=== PATIENT | female | born 1960 | race Hispanic/Latino ===

== ENCOUNTER 2021-08-01 05:56 | Day surgery (SDC) | payer OTHER ==
[2021-08-01] VITALS (7 sets, daily range): BP systolic 90–123; BP diastolic 55–82
[~2021-08-01] VITALS: Ht 157.5 cm; Wt 78.9 kg
[2021-08-01] MEDS ORDERED: 0.9%NACL 1000ML 1,000 ML IV ONE (06:24)
[2021-08-01] MEDS ORDERED: VITAD50000 PO (07:04)
[2021-08-01] MEDS ORDERED: VITA1CAP PO (07:04)
[2021-08-01] MEDS ORDERED: HYDR25TA PO (07:04)
[2021-08-01] MEDS ORDERED: ASPI-1197 PO (07:04)
[2021-08-01] MEDS ORDERED: SIMV10TA97 PO (07:04)
[2021-08-01] MEDS ORDERED: METF-526 PO (07:04)
[2021-08-01] MEDS ORDERED: SEMA7TAB PO (07:04)
[2021-08-01] MEDS ORDERED: DULO30CA52 PO (07:04)
[2021-08-01] MEDS ORDERED: DULA0.75 SQ (07:04)
[2021-08-01] MEDS ORDERED: PLEC3TAB2 PO (07:04)
[2021-08-01] MEDS ORDERED: LEVO112C4 PO (07:04)
[2021-08-01] MEDS ORDERED: PROPOFOL 10 MG/ML 20ML VIAL IV ONE (08:30)
[2021-08-01] MEDS ORDERED: LIDOCAINE HCL 400MG/20ML VIAL ONE (08:30)
== END 2021-08-01 09:46 | disposition home or self-care (01) ==
LOC: DAH 05:56
PROVIDERS: ATTEND Internal Medicine Gastroenterology
DX: R10.12 Left upper quadrant pain (principal); K29.50 Unspecified chronic gastritis without bleeding; K29.40 Chronic atrophic gastritis without bleeding; K31.89 Other diseases of stomach and duodenum; I10 Essential (primary) hypertension; E78.5 Hyperlipidemia, unspecified; E11.9 Type 2 diabetes mellitus without complications; E03.9 Hypothyroidism, unspecified; Z79.899 Other long term (current) drug therapy; Z20.822 Contact with and (suspected) exposure to COVID-19; Z98.890 Other specified postprocedural states; Z90.49 Acquired absence of other specified parts of digestive tract
CPT/HCPCS: 43239; 82948 ×5; 87635; A4215 ×2; A4221; A4222; A4223; A4606; A4620; A4663; C9803; J2704; J3490; J7030

== ENCOUNTER → 2022-08-06 | Outpatient (CLI) | payer OTHER ==
[~2022-08-06] MED LIST: ASPI-1197 PO; DULA0.75 SQ; DULO30CA52 PO; HYDR25TA PO; LEVO112C4 PO; METF-526 PO; PLEC3TAB2 PO; SEMA7TAB2 PO; SIMV10TA97 PO; VITA1CAP PO; VITAD50000 PO
== END | disposition home or self-care (01) ==
LOC: EDSTATUS 08-01 08:35 → SHCH 08:23
PROVIDERS: ATTEND Internal Medicine Cardiovascular Disease
DX: I87.2 Venous insufficiency (chronic) (peripheral) (principal)
CPT/HCPCS: 93970

== ENCOUNTER 2022-11-16 05:37 | Day surgery (SDC) | payer OTHER ==
[2022-11-14 09:57] LABS: BASOPHILS % (AUTO) 0.8 % (0.0-5.0); EOSINOPHILS % (AUTO) 4.5 % (0.0-8.0); HEMATOCRIT 43.5 % (36-48); LYMPHOCYTES % (AUTO) 34.4 % (21.0-51.0); MEAN CORPUSCULAR HEMOGLOBIN 29.9 pg (27.0-33.0); MEAN CORPUSCULAR HGB CONC 33.6 g/dL (32.0-36.0); MEAN CORPUSCULAR VOLUME 89.1 fL (79-99); MONOCYTES % (AUTO) 6.7 % (3.0-13.0); NEUTROPHILS % (AUTO) 53.5 % (40.0-77.0); PLATELET COUNT (AUTO) 219 K/uL (130-400); RED BLOOD CELL COUNT(AUTO) 4.88 MIL/uL (4.00-5.50); RED CELL DISTRIBUTION WIDTH 13.3 % (11.0-15.5); WHITE BLOOD COUNT (AUTO) 7.4 K/uL (4.8-10.8)
[2022-11-14 10:04] LABS: CREATININE 0.7 mg/dL (0.5-1.5); POTASSIUM 3.8 mmol/L (3.5-5.1)
[2022-11-14 10:07] LABS: INR 0.93 (0.85-1.15); PROTHROMBIN TIME 9.8 SEC (9.6-11.6)
[2022-11-14 10:08] LABS: PARTIAL THROMBOPLASTIN TIME 28.9 SEC (26.3-35.5)
[2022-11-14 10:16] LABS: B-TYPE NATRIURETIC PEPTIDE 15 pg/mL (0-100)
[2022-11-14 10:35] VITALS: BP 136/82
[2022-11-14 10:48] LABS: APPEARANCE,URINE CLEAR (CLEAR); BILIRUBIN,URINE NEGATIVE (NEGATIVE); COLOR,URINE LIGHT-YELLOW (YELLOW); GLUCOSE, URINE (UA) NEGATIVE (NEGATIVE); KETONES,URINE NEGATIVE (NEGATIVE); LEUKOCYTE ESTERASE ,URINE NEGATIVE Leu/uL (NEGATIVE); NITRATE,URINE NEGATIVE (NEGATIVE); OCCULT BLOOD,URINE NEGATIVE (NEGATIVE); PH,URINE 7.5 (5.0-8.0); PROTEIN,URINE NEGATIVE (NEGATIVE); UROBILINOGEN,URINE 0.2 mg/dL (0.2-1.0)
[2022-11-16] VITALS (7 sets, daily range): BP systolic 116–129; BP diastolic 62–78
[~2022-11-16] VITALS: Ht 157.5 cm; Wt 86.6 kg
[~2022-11-16 05:37] MED LIST changes: -ASPI-1197 PO; -DULA0.75 SQ; -METF-526 PO; -PLEC3TAB2 PO; +SEMA1PEN3 SQ; -SEMA7TAB2 PO; -VITA1CAP PO
[2022-11-16] MEDS ORDERED: 0.9%NACL 1000ML 1,000 ML IV ONE (06:21)
[2022-11-16] MEDS ORDERED: NITROGLYCERIN 50MG VIAL ONE (07:11)
[2022-11-16] MEDS ORDERED: MIDAZOLAM HCL 1 MG/ML 2ML VIAL ONE (07:11)
[2022-11-16] MEDS ORDERED: IODIXANOL 320 MG/ML 100 ML VIAL ONE (07:11)
[2022-11-16] MEDS ORDERED: FENTANYL CITRATE PF 50 MCG/1 ML 2ML VIAL ONE (07:11)
[2022-11-16] MEDS ORDERED: HEPARIN 10,000 UNIT/10ML (1,000 UNIT/ML) VIAL ONE (07:11)
[2022-11-16] MEDS ORDERED: LIDOCAINE HCL 400MG/20ML VIAL ONE (07:12)
[2022-11-16] MEDS ORDERED: CLOPIDOGREL 300MG TAB ONE (08:20)
[2022-11-16] MEDS ORDERED: ASPIRIN 325MG EC TAB PO ONE (08:20)
[2022-11-16] MEDS ORDERED: DEXTROSE 50%-WATER 50 ML DISP.SYRIN IV PRN (08:30)
[2022-11-16] MEDS ORDERED: GLUCAGON 1MG KIT 1 MG ML IM PRN (08:30)
[2022-11-16] MEDS ORDERED: ACETAMINOPHEN WITH CODEINE 1 TAB TAB PO PRN ×2 (08:30)
[2022-11-16] MEDS ORDERED: INSULIN HUMULIN R 100 UNIT/ML 3ML SQ SCH (11:30)
== END 2022-11-16 10:23 | disposition home or self-care (01) ==
LOC: DAH 05:37
PROVIDERS: ATTEND Internal Medicine Cardiovascular Disease
DX: I87.1 Compression of vein (principal); I25.10 Atherosclerotic heart disease of native coronary artery without angina pectoris; E11.9 Type 2 diabetes mellitus without complications; F32.A Depression, unspecified; E03.9 Hypothyroidism, unspecified; Z79.899 Other long term (current) drug therapy; Z72.89 Other problems related to lifestyle; Z98.890 Other specified postprocedural states; Z79.84 Long term (current) use of oral hypoglycemic drugs; Z90.710 Acquired absence of both cervix and uterus
CPT/HCPCS: 80048; 83880; 85025; 85610; 85730; 81003; 36415; 93005; 37238; 37239; 36012; 75822; 37252; 37253 ×5; 82948 ×2; C1876 ×2; C1894 ×3; C1753; C1769; J3010; J3490 ×2; J7030; J1644 ×2; J2250; Q9967; A4215; A4222; A4221; A4663; A4216; A4606; A4223 ×3; 99156; 99157

== ENCOUNTER 2023-06-19 06:15 | Day surgery (SDC) | payer OTHER ==
[2023-06-19] VITALS (11 sets, daily range): BP systolic 98–111; BP diastolic 59–69; PULSE 53–64; RESP 13–16
[~2023-06-19] VITALS: Ht 157.5 cm; Wt 81.6 kg
[~2023-06-19 06:15] MED LIST changes: +AEC81 PO; +CHOL100040 PO; +CLOP75TA32 PO; -SEMA1PEN3 SQ; +TIRZ5PEN SQ; -VITAD50000 PO
[2023-06-19] MEDS ORDERED: 0.9%NACL 1000ML 1,000 ML IV ONE (06:20)
[2023-06-19] MEDS ORDERED: PROPOFOL 10 MG/ML 20ML VIAL IV ONE (08:14)
== END 2023-06-19 09:45 | disposition home or self-care (01) ==
LOC: ENDO 06:15 → DAH 06:15 → ENDO 09:45
PROVIDERS: ATTEND Internal Medicine
DX: Z12.11 Encounter for screening for malignant neoplasm of colon (principal); K63.5 Polyp of colon; K29.50 Unspecified chronic gastritis without bleeding; I10 Essential (primary) hypertension; E78.00 Pure hypercholesterolemia, unspecified; E11.9 Type 2 diabetes mellitus without complications; E03.9 Hypothyroidism, unspecified; Z79.01 Long term (current) use of anticoagulants; Z79.899 Other long term (current) drug therapy; Z98.890 Other specified postprocedural states; Z79.82 Long term (current) use of aspirin; Z79.84 Long term (current) use of oral hypoglycemic drugs; Z90.710 Acquired absence of both cervix and uterus
CPT/HCPCS: 43239; 45380; J7030 ×2; J2704; A4620; A4215 ×2; A4223; A7002; A4222; A4221; A4663; A4216; A4606; J3490

== ENCOUNTER → 2024-02-10 | Outpatient (CLI) | payer OTHER | END | disposition home or self-care (01) | LOC: SHCH 15:10 | PROVIDERS: ATTEND Internal Medicine Cardiovascular Disease | DX: I87.1 Compression of vein (principal); I87.2 Venous insufficiency (chronic) (peripheral); E03.9 Hypothyroidism, unspecified; E78.00 Pure hypercholesterolemia, unspecified; E78.5 Hyperlipidemia, unspecified; E11.9 Type 2 diabetes mellitus without complications; Z95.820 Peripheral vascular angioplasty status with implants and grafts; Z68.33 Body mass index [BMI] 33.0-33.9, adult; Z79.899 Other long term (current) drug therapy | CPT/HCPCS: 93971 ==

== ENCOUNTER 2025-06-05 09:12 | Emergency (ER) | payer OTHER ==
[~2025-06-05] VITALS: Ht 157.5 cm; Wt 83.9 kg
[~2025-06-05 09:12] MED LIST changes: -LEVO112C4 PO; +LEVO112C5 PO
--- NOTE | 2025-06-05 09:29 | ERN ---
General Chief Complaint: Earache Stated Complaint: LEFT EAR PAIN Time Seen by MD: 09:16 History of Present Illness Initial Comments 65-year-old female history of Kedar's granulomatosis, hypothyroid, hypertension, hyperlipidemia, diabetes mellitus here for evaluation of non specific left-sided ear pain, neck pain, left arm pain and chest pain. Patient states that she thinks it was her normal body aches however she mentioned it to her son who advised the patient come to the emergency room for evaluation. Allergies: Coded Allergies: No Known Drug Allergies (Unverified Allergy, Unknown, 07/31/21) Home Meds Reported Medications Cholecalciferol (Vitamin D3) (Vitamin D3) 25 Mcg (1000 Unit) Capsule, 25 MCG PO DAILY, CAP 06/17/23 Tirzepatide (Mounjaro) 5 Mg/0.5 Ml Pen.injctr, 5 MG SQ QWEEK 06/17/23 Clopidogrel Bisulfate (Clopidogrel) 75 Mg Tablet, 75 MG PO DAILY, TAB 06/17/23 Aspirin (ASPIRIN 81 MG ECTAB) 81 Mg Ectab, 81 MG PO DAILY, TAB.EC 06/17/23 Levothyroxine Sodium (Levothyroxine) 112 Mcg Capsule, 112 MCG PO DAILY, CAP 08/01/21 Duloxetine HCl (Duloxetine HCl) 30 Mg Capsule.dr, 30 MG PO HS, CAP 08/01/21 Simvastatin (Simvastatin) 10 Mg Tablet, 20 MG PO HS, TAB 08/01/21 Hydrochlorothiazide (Hydrochlorothiazide) 25 Mg Tablet, 25 MG PO DAILY, TAB 08/01/21 Past Medical History Past Medical History: Diabetes-Type II Medical History Other: ADAMES'S, HYPOTHYROID Past Surgical History: Hysterectomy, Cholecystectomy Cardiovascular: (+) chest pain Musculoskeletal: (+) Neck pain Physical Exam Physical Exam Dictation GENERAL APPEARANCE NAD, activity normal for age, well developed/ well nourished, no cyanosis, pallor, or diaphoresis. EYES lids/conjunctiva normal. EARS/NOSE/THROAT Mucous membranes moist, nares normal, lips/teeth normal uvula midline without oral pharyngeal erythema, exudate or swelling TMs normal bilaterally. No lymphangitis/lymphedema. HEAD/NECK normocephalic atraumatic, no facial trauma, neck is supple. RESPIRATORY respiratory effort normal, speaks in full sentences, no tripod position, no accessory muscle use. Lungs clear to auscultation without rhonchi, wheezes, rales CARDIAC Regular rate and rhythm, no edema. ABDOMINAL Soft, ND/NT. No evidence of fluid wave. No pulsatile masses on exam, rebound tenderness, Obando sign or pain over Mcburney's point. MUSCLES/EXTREMITIES No abnormal range of motion, no swelling. SKIN Warm, pink and dry. No rashes, dermatoses, petechiae or lesions. NEUROLOGICAL Speech is clear and appropriate. Normal level of consciousness. Gait and coordination are normal. 5/5 strength in all extremities. PSYCH Normal mood and affect. Judgement/competence is appropriate Results Laboratory and Microbiology Lab and Micro Result Laboratory Tests Test 06/05/25 09:58 06/05/25 10:38 White Blood Count 11.5 K/uL (4.8-10.8) H Red Blood Count 4.96 MIL/uL (4.00-5.50) Hemoglobin 15.0 g/dL (12.0-16.0) Hematocrit 45.5 % (36-48) Mean Corpuscular Volume 91.7 fL (79-99) Mean Corpuscular Hemoglobin 30.2 pg (27.0-33.0) Mean Corpuscular Hemoglobin Concent 33.0 g/dL (32.0-36.0) Red Cell Distribution Width 13.2 % (11.0-15.5) Platelet Count 223 K/uL (130-400) Mean Platelet Volume 10.5 fL (7.5-10.5) Immature Granulocyte % (Auto) 0.3 % (0-1) Neutrophils (%) (Auto) 84.4 % (40.0-77.0) H Lymphocytes (%) (Auto) 11.4 % (21.0-51.0) L Monocytes (%) (Auto) 3.2 % (3.0-13.0) Eosinophils (%) (Auto) 0.3 % (0.0-8.0) Basophils (%) (Auto) 0.4 % (0.0-5.0) Neutrophils # (Auto) 9.7 K/uL (1.8-7.7) H Lymphocytes # (Auto) 1.3 K/uL (1.0-4.8) Monocytes # (Auto) 0.4 K/uL (0.1-1.0) Eosinophils # (Auto) 0.03 K/uL (0.00-0.70) Basophils # (Auto) 0.05 K/uL (0.00-0.20) Absolute Immature Granulocyte (auto 0.04 K/uL (0-1) Nucleated Red Blood Cells 0.0 % (0.0-0.19) Sodium Level 139 mmol/L (136-145) Potassium Level 4.0 mmol/L (3.5-5.1) Chloride Level 103 mmol/L (101-111) Carbon Dioxide Level 28 mmol/L (21-32) Blood Urea Nitrogen 14 mg/dL (7-18) Creatinine 0.6 mg/dL (0.5-1.0) Glomerular Filtration Rate Calc 99 mL/min (>90) Random Glucose 108 mg/dL (70-105) H Total Calcium 9.1 mg/dL (8.5-10.1) Troponin I High Sensitivity < 4 ng/L (4-50) L < 4 ng/L (4-50) L EKG/XRAY/US/CT/MRI EKG Comment EKG read by me: Rate of 74, TX 145, QRS 91, QT four three, normal sinus rhythm with possible left atrial enlargement. Left anterior fascicular block. No STEMI. MDM 65-year-old female here for evaluation of neck pain, chest pain. Likely normal body aches. However due to her concern and her come to the emergency room, we will get a cardiac workup and reassess. Likely discharge home. Disposition pending results of labs and imaging ED Course Orders Procedure Category Date Status Time Basic Metabolic Panel LAB 06/05/25 Complete : Cbc With Differential LAB 06/05/25 Complete : Urinalysis Profile LAB 06/05/25 Logged 09:26 Troponin I High LAB 06/05/25 Complete Sensitivity 09:26 12 Lead Ekg Tracing- EKG 06/05/25 Logged Technical : Chest 1vw RAD 06/05/25 Resulted 09: Troponin I High LAB 06/05/25 Complete Sensitivity 10:35 Vital Signs Date Time Temp Pulse Resp B/P (MAP) Pulse Ox O2 Delivery O2 Flow Rate FiO2 06/05/25 10:19 98.1 73 19 124/74 98 Room Air* 0 21 06/05/25 09:13 98.2 84 16 143/81 97 Room Air Patient's prior external medical records from other ER visits were reviewed by me as indicated. Prior testing and results from previous visits were reviewed. Prior tests were taken into account with medical decision making and resource utilization, independent historian/historians were used to obtain complete medical history. I independently interpreted the test that were performed, results were reviewed by me and considered findings on radiology if ordered. Medical management and examination interpretation discussions were had by me with other qualified healthcare professionals as indicated for the patient's care. Labs and imaging reviewed with patient. All questions answered at this time. Patient advised to follow up with primary care physician in the next few days. Patient well-appearing, no acute distress. Vital signs stable. Will discharge at this time. Patient well-appearing no acute distress. Vital signs stable. We will discharge home at this time. All labs and imaging reviewed with the patient. HEART Score Response (Comments) Value History: Low suspicion (0) 0 EKG: Normal 0 Age: > 65yrs (+2) 2 Risk Factors: 1-2 risk factors (+1) 1 Initial Troponin: Normal limit (0) 0 HEART Score Risk: Low Risk for MACE (1-3) Total 3 DX & DISP Disposition: Discharge Departure Impression: Primary Impression: Muscle spasm Additional Impression: Chest wall muscle strain Condition: Stable Referrals: JASWINDER MONTOYA (PCP) MIKKI GLORIA MD Jun 05, 2025 09:29
[2025-06-05 10:06] LABS: IMMATURE GRANULOCYTE ABSOLUTE 0.04 K/uL (0-1); NUCLEATED RED BLOOD CELLS 0.0 % (0.0-0.19); PLATELET COUNT (AUTO) 223 K/uL (130-400); RED BLOOD CELL COUNT(AUTO) 4.96 MIL/uL (4.00-5.50); RED CELL DISTRIBUTION WIDTH 13.2 % (11.0-15.5); WHITE BLOOD COUNT (AUTO) 11.5 K/uL (4.8-10.8)
--- NOTE | 2025-06-05 10:10 | HMCIMG ---
EXAM: CR Chest, 1 View. CLINICAL HISTORY: cp COMPARISON: None. FINDINGS: Lungs show no pulmonary infiltrate or other acute finding. No pleural effusion. There is no pneumothorax. The cardiomediastinal silhouette is within normal limits. No acute osseous abnormality is seen. IMPRESSION: No acute cardiopulmonary disease is seen. /[place]
[2025-06-05 10:16] LABS: CREATININE 0.6 mg/dL (0.5-1.0); GLOMERULAR FILTR. RATE CALC 99.0 mL/min (>90); GLUCOSE,RANDOM 108.0 mg/dL (70-105); SODIUM SERUM 139.0 mmol/L (136-145); UREA NITROGEN, BLOOD 14.0 mg/dL (7-18)
--- NOTE | 2025-06-05 11:29 | EKG ---
[facility] Test Date: 2025-06-05 Test Time: 09:30:02 Pat Name: YAHIR ANNE Department: [facility] Room: Gender: F Cyberathlete: [id number] : 1960 Requested By: MIKKI GLORIA Order Number: [id number] Reading MD: Sukhdev Melendez Measurements Intervals [place] Rate: 74 P: 56 UT: 145 QRS: -68 QRSD: 91 T: 32 QT: 403 QTc: 447 Interpretive Statements Sinus rhythm Probable left atrial enlargement Left anterior fascicular block Low voltage, precordial leads Compared to ECG 11/14/2022 09:48:21 Low QRS voltage now present Electronically Signed On 06-05-2025 18:59:46 [employer] by Sukhdev Melendez Please click the below link to view image of tracing.
[2025-06-05 11:44] LABS: APPEARANCE,URINE CLEAR (CLEAR); GLUCOSE, URINE (UA) NEGATIVE (NEGATIVE); LEUKOCYTE ESTERASE ,URINE NEGATIVE Leu/uL (NEGATIVE); NITRATE,URINE NEGATIVE (NEGATIVE); OCCULT BLOOD,URINE NEGATIVE (NEGATIVE)
[2025-06-05 11:46] LABS: ADD UA MICROSCOPIC NO
[2025-06-05 11:52] VITALS: BP 126/78; PULSE 73; RESP 18; TEMP 98.1; O2SAT 95
--- NOTE | 2025-06-05 11:53 | NUR ---
dc DISCHARGE INSTRUCTIONS GIVEN TO PT AND FAMILY AT BEDSIDE, PT IN NO DISTRESS, AGREES TO BE DISCHARGED
== END 2025-06-05 11:51 | disposition home or self-care (01) ==
LOC: EDH 09:12
DX: S29.011A Strain of muscle and tendon of front wall of thorax, initial encounter (principal); M62.838 Other muscle spasm; H92.02 Otalgia, left ear; M54.2 Cervicalgia; M79.602 Pain in left arm; E11.9 Type 2 diabetes mellitus without complications; E03.9 Hypothyroidism, unspecified; E78.5 Hyperlipidemia, unspecified; I10 Essential (primary) hypertension; Z79.02 Long term (current) use of antithrombotics/antiplatelets; Z79.82 Long term (current) use of aspirin; Z79.85 Long-term (current) use of injectable non-insulin antidiabetic drugs; Z79.890 Hormone replacement therapy; Z79.899 Other long term (current) drug therapy; Z90.49 Acquired absence of other specified parts of digestive tract; Z90.710 Acquired absence of both cervix and uterus; X58.XXXA Exposure to other specified factors, initial encounter; Y93.89 Activity, other specified; Y92.89 Other specified places as the place of occurrence of the external cause; Y99.8 Other external cause status
CPT/HCPCS: 36415; 71045; 80048; 81003; 84484; 85025; 93005; 99285